=== PATIENT | female | born 1935 | race Caucasian/White ===

== ENCOUNTER 2017-03-08 23:09 | Emergency (ER) | payer OTHER, MEDICARE ==
[~2017-03-08] VITALS: Ht 170.2 cm; Wt 52.2 kg
[~2017-03-08 23:09] MED LIST: ADVAIR 100-501 EACH INH; ADVAIR 250-501 EACH INH; ADVAIR HFA 230M12 GM INH; ALDACTONE25 MG PO; ALPRAZOLAM 0.0.25 M1 PO; AMBEREN; CALCIUM 600 +1 EAC1 PO; CARAFATE 1 GM TA1 G1 PO; CARAFATE 11 GM/10 M1 PO; CLEOCIN HCL300 MG PO; CO Q-10150 MG PO; COUMADIN 5 MG TA5 M1 PO; D3 + K2 DOTS 11 EACH PO; DIGOXIN125 MCG PO; DUONEB 2.5-0.5 M3 ML INH; EPA-DHA 720 SO1 EACH; EPA-DHA 720 SO1 EACH PO; FISH OIL500 MG PO; FISHOIL; FLEXERIL PO; FOSAMAX 70 MG T70 M1 PO; FUROSEMIDE 40 M40 M1 PO; IRON325 PO; JANUVIA50 MG PO; KEFLEX500 MG PO; KLOR-CON M2020 MEQ PO; LANOXIN 0.250.25 M1 PO; LASIX 40 MG TAB40 M2 PO; LIPITOR20 MG PO; LISINOPRIL1 GM PO; LOPRESSOR25 PO; MAGNESIUM100 MG PO; METOPROLOL TART25 MG PO; MIDODRINE HCL 55 M1 PO; Magnesium PO; NEXIUM 40 MG CA40 M1 PO; NEXIUM40 MG PO; OMEPRAZOLE40 MG PO; PRESERVISION A1 EAC1 PO; PRESERVISION A1 EAC2 PO; PRESERVISION T1 EACH PO; PREVACID30 MG PO; PROAIR HFA8.5 GM INH; PROTEIN POWDER454 GM PO; REMERON15 MG PO; SELENIMIN50 MCG PO; SIMVASTATIN20 MG PO; SINGULAIR 10 MG10 M1 PO; SKELAXIN 800 M800 M1 PO; SYMBICORT160 MCG/4. INH; THIAMINE HCL100 MG PO; TOPROL XL50 MG PO; TRAMADOL 50 MG50 MG PO; TRIAMTERENE-HC1 EAC1 PO; VITAMIN B-1250 MC3 PO; VITAMIN B-625 MG PO; VITAMIN C 250250 MG PO; VITAMIN C500 M1 PO; VITAMIN D1000 UNI1 PO; VITAMIN D32000 UNI1 PO; VITAMIN E400 UNIT PO; ZANTAC 150MG T150 MG PO; ZESTRIL2.5 MG PO; ZINC CHELATE15 MG PO
[2017-03-09 00:58] LABS: ABSOLUTE NEUTROPHILS 3.8 thou/uL (1.4-8.2); BASOPHILS 0.9 % (0.0-2.0); EOSINOPHILS 1.9 % (0.0-3.0); HEMATOCRIT 33.2 % (37.0-47.0); HEMOGLOBIN 11.3 gm/dL (12.0-15.0); LYMPHOCYTES 31.3 % (24.0-44.0); MCH 33.2 pg (26.0-34.0); MCV 97.4 fL (80.0-100.0); MONOCYTES 11.6 % (1.0-8.0); PLATELET COUNT 186 thou/uL (150-400); POLYS 54.3 % (36.0-66.0); RBC 3.41 mil/uL (4.20-5.00); RDW 13.8 % (10.5-14.5); WBC 6.9 thou/uL (4.0-11.0)
[2017-03-09 01:00] LABS: MANUAL DIFF NO
[2017-03-09 01:20] LABS: INR 2.3; PROTIME 23.1 Seconds (9.3-11.4)
== END 2017-03-09 02:19 | disposition home or self-care (01) ==
LOC: ER 23:09
PROVIDERS: Emergency Medicine
DX: R04.0 Epistaxis (principal); J44.9 Chronic obstructive pulmonary disease, unspecified; I48.91 Unspecified atrial fibrillation; K21.9 Gastro-esophageal reflux disease without esophagitis; E11.9 Type 2 diabetes mellitus without complications; F41.9 Anxiety disorder, unspecified; F10.99 Alcohol use, unspecified with unspecified alcohol-induced disorder; I10 Essential (primary) hypertension; Z85.828 Personal history of other malignant neoplasm of skin; Z90.49 Acquired absence of other specified parts of digestive tract; Z96.641 Presence of right artificial hip joint; Z88.0 Allergy status to penicillin; Z88.2 Allergy status to sulfonamides

== ENCOUNTER 2017-12-14 20:03 | Inpatient (IN) | payer OTHER, MEDICARE ==
[~2017-12-14] VITALS: Ht 170.2 cm; Wt 50.3 kg
--- NOTE | ~2017-12-14 | H ---
[facility] [place] [address] HISTORY AND PHYSICAL Name: EARLENE GONZALEZ Room #: 464-P [facility] IN M.R.#: [id number] Admission: 12/14/17 Attend Phys: Cortes Paez MD Discharge: Date of : 36 Report #: [id number] THIS REPORT FOR: //name// CC: Cortes HAINES DATE OF SERVICE: 12/15/2017 REASON FOR CONSULTATION: Epistaxis. HISTORY OF PRESENT ILLNESS: The patient is an 82-year-old female, has had problems with epistaxis over the last several days. She was seen by my partner, Dr. Ortiz, on in the office and cauterized at that time. Throughout the next day, she started having bleeding again and was seen in the Emergency Room on Sunday, was admitted to the hospital on Sunday night after being cauterized again in the Emergency Room and continued to have problems with oozing from her left naris. She is on Coumadin. Her INR was 2.1 on admission. Her Coumadin is being held currently, but she is continued to ooze and received a routine consult this morning at 6:45 a.m. At that time, she was not actively bleeding. Nurse called me back at about 11:00 and she said that she started bleeding again. She was at that time treated with Afrin. She continued to ooze throughout the day and has been using tissue to catch the drops of blood that coming from the left naris. I have come to see her this evening with ongoing oozing despite cauterization x 2 as well as Afrin trial. PAST MEDICAL HISTORY: Significant at this point for atrial fibrillation for which she takes Coumadin and is anticoagulated. The rest of her medical history is well detailed in the history and physical, was available in the chart. MEDICATIONS: Her MAR for medications. ALLERGIES: SHE IS ALLERGIC TO PENICILLIN. REVIEW OF SYSTEMS: Currently is significant for epistaxis from the left side. PHYSICAL EXAMINATION: GENERAL: She is a well-developed female who is sitting up. She has eaten a portion of her dinner this evening. HEENT: She continues to hold a cotton to her left naris and continues to ooze very slowly, dripping from her left nose occasionally. Head normocephalic. Pupils are equal. Nasal: She has active bleeding from the left side of her nose, which is minimal. Oral cavity: No evidence of blood going down the posterior pharynx. NECK: No palpable adenopathy. IMPRESSION: Persistent epistaxis despite 2 attempts of cauterization and Afrin. [facility] [address] [place] [address] HISTORY AND PHYSICAL Name: EARLENE GONZALEZ Andrea Room #: 464-P [facility] IN M.R.#: [id number] Admission: 12/14/17 Attend Phys: Cortes Paez MD Discharge: Date of : 36 Report #: [id number] PLAN: Nasal packing is placed today with an 8 cm Merocel sponge placed in the left naris. We will see how she does overnight. She should stop bleeding. Once the bleeding has been adequately controlled for several hours, then she will be discharged and follow up with Dr. Ortiz in the office on Sunday. <ELECTRONICALLY SIGNED> By: Forest Rosales MD 12/16/1715 184 50 Forest Rosales MD /nt
[2017-12-14 20:16] VITALS: BP 120/49
[2017-12-14] MEDS ORDERED: CO Q-1010 MG PO (20:29)
[2017-12-14] MEDS ORDERED: FISH OIL 1,001000 M2 PO (20:31)
[2017-12-14] MEDS ORDERED: KLOR-CON 1010 MEQ PO (20:32)
[2017-12-14] MEDS ORDERED: MAGOX 400400 MG PO (20:33)
[2017-12-14] MEDS ORDERED: NEXIUM40 MG PO (20:34)
[2017-12-14] MEDS ORDERED: SELENIMIN50 MCG PO (20:35)
[2017-12-14] MEDS ORDERED: CARAFATE 1 GM TA1 G1 PO (20:44)
[2017-12-14] MEDS ORDERED: VITAMIN B 6 (20:45)
[2017-12-14] MEDS ORDERED: VITAMINC500 PO (20:45)
[2017-12-14 21:06] LABS: HEMOGLOBIN 9.2 gm/dL (12.0-15.0); MCH 32.2 pg (26.0-34.0); MCHC 33.9 g/dL (28.0-37.0); PLATELET COUNT 145 thou/uL (150-400); RBC 2.84 mil/uL (4.20-5.00); RDW 13.7 % (10.5-14.5); WBC 5.4 thou/uL (4.0-11.0)
[2017-12-14 21:22] LABS: INR 2.1; PROTIME 20.9 Seconds (9.3-11.4)
[2017-12-14 22:03] LABS: ABSOLUTE NEUTROPHILS 3.5 thou/uL (1.4-8.2)
[2017-12-14 22:57] LABS: CALCIUM 8.9 mg/dL (8.5-10.1); CREATININE 1.2 mg/dL (0.6-1.0); POTASSIUM 4.5 mmol/L (3.5-5.1)
[2017-12-14 23:22] VITALS: BP 120/49
[2017-12-14 23:48] VITALS: BP 122/64
[2017-12-15 00:05] VITALS: BP 126/61
[2017-12-15 03:15] VITALS: BP 115/46
[2017-12-15 05:31] LABS: HEMATOCRIT 26.7 % (37.0-47.0); HEMOGLOBIN 9.1 gm/dL (12.0-15.0)
[2017-12-15 05:42] LABS: CALCIUM 9.3 mg/dL (8.5-10.1); CREATININE 1.2 mg/dL (0.6-1.0); POTASSIUM 4.2 mmol/L (3.5-5.1)
[2017-12-15 05:54] LABS: INR 2.1; PROTIME 20.7 Seconds (9.3-11.4)
[2017-12-15 08:19] VITALS: BP 102/56
[2017-12-15 16:25] VITALS: BP 109/50
[2017-12-15 19:06] VITALS: BP 96/50
[2017-12-16 00:02] VITALS: BP 98/49
[2017-12-16 01:22] VITALS: BP 90/43
[2017-12-16 03:23] VITALS: BP 84/39
[2017-12-16] MEDS ORDERED: ASPIRIN EC325 MG PO (08:43)
[2017-12-16 10:37] VITALS: BP 113/28
[2017-12-16 10:52] VITALS: BP 113/28
== END 2017-12-16 14:34 | disposition home or self-care (01) | DRG 151 ==
LOC: ER 20:03 → EROBS 23:08 → 4W 23:49
PROVIDERS: Nurse Practitioner Acute Care; Nurse Practitioner Family
PROC: 2Y41X5Z Packing of Nasal Region using Packing Material (ICD-10-PCS; principal; 2017-12-14)
DX: R04.0 Epistaxis (principal); J96.10 Chronic respiratory failure, unspecified whether with hypoxia or hypercapnia; J43.9 Emphysema, unspecified; K21.9 Gastro-esophageal reflux disease without esophagitis; E11.9 Type 2 diabetes mellitus without complications; F41.9 Anxiety disorder, unspecified; I10 Essential (primary) hypertension; Z96.641 Presence of right artificial hip joint; I48.2 Chronic atrial fibrillation; D64.9 Anemia, unspecified; Z99.81 Dependence on supplemental oxygen; Z85.828 Personal history of other malignant neoplasm of skin; Z98.42 Cataract extraction status, left eye; Z98.41 Cataract extraction status, right eye; Z79.01 Long term (current) use of anticoagulants; Z90.49 Acquired absence of other specified parts of digestive tract; Z79.51 Long term (current) use of inhaled steroids; Z79.899 Other long term (current) drug therapy; Z88.0 Allergy status to penicillin; Z88.2 Allergy status to sulfonamides; Z82.49 Family history of ischemic heart disease and other diseases of the circulatory system; Z80.7 Family history of other malignant neoplasms of lymphoid, hematopoietic and related tissues
CPT/HCPCS: 10045

== ENCOUNTER 2017-12-21 10:41 | Emergency (ER) | payer OTHER, MEDICARE ==
[~2017-12-21] VITALS: Ht 170.2 cm; Wt 50.4 kg
[~2017-12-21 10:41] MED LIST changes: +ASPIRIN EC325 MG PO; +CO Q-1010 MG PO; +FISH OIL 1,001000 M2 PO; +KLOR-CON 1010 MEQ PO; +MAGOX 400400 MG PO; +VITAMIN B 6; +VITAMINC500 PO
[2017-12-21 11:58] LABS: HEMATOCRIT 27.1 % (37.0-47.0); HEMOGLOBIN 9.2 gm/dL (12.0-15.0); MCH 32.1 pg (26.0-34.0); MCHC 34.1 g/dL (28.0-37.0); MCV 94.3 fL (80.0-100.0); PLATELET COUNT 165 thou/uL (150-400); RBC 2.87 mil/uL (4.20-5.00); RDW 14.1 % (10.5-14.5); WBC 6.6 thou/uL (4.0-11.0)
[2017-12-21 12:10] LABS: INR 1.4; PROTIME 14.4 Seconds (9.3-11.4)
[2017-12-21] MEDS ORDERED: CIPRO250 M1 PO (12:43)
[2017-12-21 12:49] LABS: ABSOLUTE NEUTROPHILS 4.4 thou/uL (1.4-8.2)
== END 2017-12-21 14:25 | disposition home or self-care (01) ==
LOC: ER 10:41
PROVIDERS: Emergency Medicine
DX: R04.0 Epistaxis (principal); J44.9 Chronic obstructive pulmonary disease, unspecified; I48.91 Unspecified atrial fibrillation; G47.30 Sleep apnea, unspecified; K21.9 Gastro-esophageal reflux disease without esophagitis; M19.90 Unspecified osteoarthritis, unspecified site; E11.9 Type 2 diabetes mellitus without complications; F41.9 Anxiety disorder, unspecified; I45.6 Pre-excitation syndrome; I10 Essential (primary) hypertension; Z96.641 Presence of right artificial hip joint; Z85.828 Personal history of other malignant neoplasm of skin; Z90.49 Acquired absence of other specified parts of digestive tract; Z90.89 Acquired absence of other organs; Z88.0 Allergy status to penicillin; Z88.2 Allergy status to sulfonamides

== ENCOUNTER 2017-12-21 21:16 | Inpatient (IN) | payer OTHER, MEDICARE ==
[~2017-12-21] VITALS: Ht 172.7 cm; Wt 54.2 kg
--- NOTE | ~2017-12-21 | HC ---
[facility] [place] [address] [place] [address] CONSULTATION Name: EARLENE GONZALEZ Room #: 364-P [facility] IN ..#: [id number] Admission: 12/21/17 Attend Phys: Sunny Smith DO Discharge: Date of : 36 Report #: [id number] THIS REPORT FOR: //name// CC: Sunny HAINES DATE OF SERVICE: 12/22/2017 SURGEON: Kirk Ortiz MD. REASON FOR CONSULTATION: Persistent and recurrent epistaxis. HISTORY OF PRESENT ILLNESS: The patient is an 82-year-old female, well known to me from the office. She has had a problem for years with chronic epistaxis, over the course of the last month, this has been an increasing problem. The patient has chronic COPD and is on 24/7 oxygen dependency via nasal cannula. Often, she uses non-humidified oxygen through the nose and as a result of her underlying nasal septal deviation, the cannula impacts the nasal septum with the high flow oxygen that is dry. This has created a situation of chronic mucosal excoriation and crusting resulting in persistent bleeding. Complicating this, the patient has atrial fibrillation and is on chronic Coumadin therapy. Recently, she had come in with an elevated INR, in last week, her Coumadin was held for several days to get this back to normal. This did help with the bleeding after cauterization in the office. The patient was begun on Bactroban ointment, and a home health care was contacted, and an oxygen mask delivery system was arranged. We have tried this in the past, and she has been very resistant to do this secondary to claustrophobia. The patient had been doing better. She restarted her Coumadin 48 hours ago and yesterday had a recurrence of bleeding. She presented to the Emergency Department yesterday morning about 10:55. I have reviewed the notes as well as she had contacted my office and talked with my nurse. A Rapid Rhino epistaxis balloon was placed on her left side with control. She was discharged to home. She has been watching the [employer] game last night and sneezed. The balloon came out, and she began bleeding significantly. She re-presented to the Emergency Department last evening. Initially, a Rapid Rhino balloon was put on the opposite right side. This seemed to control initially, but that she began bleeding through the left. An attempt was made to pass another balloon on the left, leaving the balloon on the right inflated unsuccessfully. The Emergency Department physician called me. I reviewed how to do this. The balloon on the right was to be deflated and then both balloons advanced and then inflated at the same time. This controlled the bleeding completely. The patient's initial hemoglobin yesterday morning was 9.2, and a second hemoglobin was done yesterday evening with a hemoglobin of 9.4. The patient had a protime of 14.4, with an INR of 1.4. When she came back in through the [facility] [address] [place] [address] CONSULTATION Name: EARLENE GONZALEZ Room #: 364-P [facility] IN M.R.#: [id number] Admission: 12/21/17 Attend Phys: Sunny Smith DO Discharge: Date of : 36 Report #: [id number] Emergency Department yesterday evening, this was repeated showing a protime of 14.7 with an INR of 1.4 and a PTT of 34.6. Because of bilateral nasal packing, her advanced COPD and oxygen dependency, the patient is a high risk for apnea and was admitted for telemetry and oximetry continuous. The patient will require broad spectrum prophylactic antibiotics while the packing is in place as well. I have again reviewed with her that the nasal cannula oxygen delivery will need to be discontinued, and the patient will need to switch to humidified mask as this heals over the next several weeks. In addition, I have talked with her hospitalist concerning the anticoagulation. This has become a problem, and the Coumadin may be more risky for her at this point, we may need to switch to a different avenue of anticoagulation including aspirin only for her chronic atrial fibrillation. PAST MEDICAL HISTORY: Significant for atrial fibrillation. She is on chronic anticoagulation with Coumadin. She has a history of coronary artery disease and chronic COPD and is oxygen dependent 24 x 7 with nasal cannula delivery. She has had recurrent bouts of epistaxis through the last several years, although the last month has been particularly bad for her. She has a history of esophageal ulcer and gastroesophageal reflux disease. She has a nontraumatic compression fracture of the seventh thoracic vertebrae. 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 History of cholecystectomy, history of tonsillectomy, history of Ntahj-Rqjnzpwxi-Pyzfy syndrome, history of bilateral cataract surgery. MEDICATIONS: Contained in her MAR. ALLERGIES: PENICILLIN AND SULFA. SOCIAL HISTORY: She is a nonsmoker and a never smoker. She does not use alcohol. She does have a who is supportive. She does live independently. FAMILY HISTORY: Significant for mother with coronary artery disease and lymphoma in her mother. REVIEW OF SYSTEMS: The patient is complaining of congestion with the balloons in place. There is no active bleeding. She is having some mild discomfort on her palate and pharynx with dryness. Otherwise, a 12-point review of systems negative. PHYSICAL EXAMINATION: GENERAL: Shows a well-developed 82-year-old female, seen in her hospital room. She is awake, alert, conversant and oriented. VITAL SIGNS: Showed temperature of 97.9, with a blood pressure 127/64, respirations of 20, pulse of 90. She is at 94% on pulse oximetry, still with oxygen use, which she is using via nasal cannula in her oral cavity. [facility] [address] [place] [address] CONSULTATION Name: LISAEARLENE Room #: 364-P [facility] IN .R.#: [id number] Admission: 12/21/17 Attend Phys: Sunny Smith DO Discharge: Date of : 36 Report #: [id number] HEENT: Nasal exam shows bilateral Rapid Rhino balloons in place. There is no active bleeding. There is dried crusted blood, especially at the left naris. Oral cavity shows atraumatic mucosa. Normal tongue and floor of mouth. There is no active bleeding in the posterior pharynx, but some dried blood present. NECK: Without adenopathy or other masses. NEUROLOGIC: Cranial nerves 2-12 intact. Motor and sensory and cerebellar exams are otherwise grossly normal. ASSESSMENT: 1. Severe, recurrent and persistent epistaxis. This is complicated by chronic Coumadin anticoagulation recently with an elevated INR. Nasal septal deviation is an anatomic deformity and chronic O2 delivery via nasal cannula with high flow nonhumidified. This has resulted in excoriation of her nasal mucosa with chronic crusting. The patient has been treated in the office with cauterization with limited improvement and continued on topical Bactroban ointment b.i.d. She has been arranged for an oxygen mask as an alternative to the nasal cannula, but is resistant to use this secondary to per professed claustrophobia. I again reviewed with her that it is paramount that this nasal cannula oxygen delivery be discontinued as this is continuing to dry crack and make the mucosa bleed. 2. Chronic anticoagulation with Coumadin for chronic atrial fibrillation. Consideration may need to be given to discontinuation of this and change to another modality of anticoagulation including aspirin only and accepting increased risk with this as the Coumadin seems to be continually problematic for bleeding. 3. Chronic obstructive pulmonary disease, oxygen dependency. 4. Chronic coronary artery disease with atrial fibrillation. 5. History of Tlmay-Jnqanraiu-Vbwsf syndrome. 6. Hypertension. 7. Noninsulin dependent diabetes. 8. Obstructive apnea. PLAN: 1. Admission for observation, telemetry and oximetry. The patient is at a high risk for apnea with bilateral nasal packing and severe COPD. Keep head of bed elevated 30 degrees. 2. Continue Rapid Rhino balloons for a minimum of 72 hours to allow for a fibrin clot to form prior to removal. 3. Broad spectrum antibiotic prophylaxis while balloons are in place. 4. Pending discharge the patient will need to be arranged for oxygen delivery via mask and nonuse of her nasal cannula. 5. Post-removal of balloons would reinstitute Bactroban ointment b.i.d. in the nasal cavity bilateral. Plan to follow along with you and available for any [address] [address] CONSULTATION Name: EARLENE GONZALEZ Room #: 364-P [facility] IN M.R.#: [id number] Admission: 12/21/17 Attend Phys: Sunny Smith DO Discharge: Date of : 36 Report #: [id number] worsening of symptoms. The patient understands of this very difficult situation. The patient is not a surgical candidate. <ELECTRONICALLY SIGNED> By: Kirk Ortiz MD 12/23/17 1032 [id number] Kirk Ortiz MD /nt
--- NOTE | ~2017-12-21 | EKG ---
[address] [address] ELECTROCARDIOGRAM REPORT Name: EARLENE GONZALEZ Room #: 364-P [facility] IN M.R.#: [id number] Admission: 12/21/17 Attend Phys: Sunny Smith DO Discharge: Date of : 36 Report #: [id number] THIS REPORT FOR: //name// [facility] Test Date: 2017-12-23 Test Time: 12:49:14 Pat Name: EARLENE GONZALEZ Department: Room: 364 P Gender: F Crayon Sawyer: [place] : 1935 Requested By: Dustin Becerril Order Number: [id number] MD: Dustin Becerril Measurements Intervals Raccoon Rate: 110 P: [place]: QRS: 113 QRSD: 131 T: 225 QT: 397 QTc: 538 Interpretive Statements Atrial fibrillation IVCD, consider atypical RBBB Excess motion artifact precordial leads Compared to ECG 08/27/2016 21:37:48 Left posterior fascicular block no longer present Electronically Signed On 12-23-2017 20:00:14 CDT by Dustin Becerril [email or web address] <ELECTRONICALLY SIGNED> By: Dustin Becerril MD 12/23/171999 1249 1249 Dustin Becerril MD /EPI
[2017-12-21 00:11] VITALS: BP 114/52
[~2017-12-21 21:16] MED LIST changes: +CIPRO250 M1 PO
[2017-12-21 22:08] LABS: HEMATOCRIT 27.7 % (37.0-47.0); HEMOGLOBIN 9.4 gm/dL (12.0-15.0); MCH 32.6 pg (26.0-34.0); MCHC 34.1 g/dL (28.0-37.0); MCV 95.4 fL (80.0-100.0); RBC 2.9 mil/uL (4.20-5.00); RDW 14.5 % (10.5-14.5); WBC 7.2 thou/uL (4.0-11.0)
[2017-12-21 22:18] LABS: CALCIUM 8.9 mg/dL (8.5-10.1); CREATININE 1.3 mg/dL (0.6-1.0); POTASSIUM 4.1 mmol/L (3.5-5.1)
[2017-12-21 22:23] LABS: APTT 34.6 Seconds (24.5-32.8); INR 1.4; PROTIME 14.7 Seconds (9.3-11.4)
[2017-12-21 23:58] VITALS: BP 110/74
[2017-12-22 04:17] VITALS: BP 116/64
[2017-12-22 07:48] VITALS: BP 127/64
[2017-12-22 11:12] VITALS: BP 107/54
[2017-12-22 15:16] VITALS: BP 75/42
[2017-12-22 17:49] VITALS: BP 94/46
[2017-12-22 19:00] VITALS: BP 96/48
[2017-12-22 20:04] LABS: HEMATOCRIT 24.5 % (37.0-47.0); HEMOGLOBIN 8.4 gm/dL (12.0-15.0); MCH 32.9 pg (26.0-34.0); MCHC 34.3 g/dL (28.0-37.0); MCV 95.9 fL (80.0-100.0); PLATELET COUNT 142 thou/uL (150-400); RBC 2.55 mil/uL (4.20-5.00); RDW 14.7 % (10.5-14.5); WBC 5.8 thou/uL (4.0-11.0)
[2017-12-22 20:08] LABS: CALCIUM 8.2 mg/dL (8.5-10.1); CREATININE 1.4 mg/dL (0.6-1.0); POTASSIUM 3.8 mmol/L (3.5-5.1)
[2017-12-22 20:21] LABS: ABSOLUTE NEUTROPHILS 3.6 thou/uL (1.4-8.2)
[2017-12-23] VITALS (7 sets, daily range): BP systolic 92–132; BP diastolic 45–74
[2017-12-23 05:43] LABS: HEMATOCRIT 25.9 % (37.0-47.0); HEMOGLOBIN 8.7 gm/dL (12.0-15.0); MCH 32.1 pg (26.0-34.0); MCHC 33.6 g/dL (28.0-37.0); MCV 95.4 fL (80.0-100.0); RBC 2.71 mil/uL (4.20-5.00); RDW 14.3 % (10.5-14.5); WBC 6.4 thou/uL (4.0-11.0)
[2017-12-23 05:52] LABS: CALCIUM 8.3 mg/dL (8.5-10.1); CREATININE 1.2 mg/dL (0.6-1.0); POTASSIUM 4.3 mmol/L (3.5-5.1)
[2017-12-23 06:47] LABS: APTT 35.2 Seconds (24.5-32.8); INR 1.7; PROTIME 16.9 Seconds (9.3-11.4)
[2017-12-24] VITALS (8 sets, daily range): BP systolic 12–139; BP diastolic 38–94
[2017-12-24 06:01] LABS: INR 1.6; PROTIME 15.8 Seconds (9.3-11.4)
[2017-12-24 06:07] LABS: CALCIUM 8.9 mg/dL (8.5-10.1); CREATININE 1.2 mg/dL (0.6-1.0); POTASSIUM 4.2 mmol/L (3.5-5.1)
[2017-12-25 00:10] VITALS: BP 99/57
[2017-12-25 05:00] VITALS: BP 103/49
[2017-12-25 05:38] LABS: BASOPHILS 0.7 % (0.0-2.0); EOSINOPHILS 0.5 % (0.0-3.0); HEMATOCRIT 24.7 % (37.0-47.0); HEMOGLOBIN 8.3 gm/dL (12.0-15.0); MCH 32.3 pg (26.0-34.0); MCHC 33.8 g/dL (28.0-37.0); MCV 95.5 fL (80.0-100.0); MONOCYTES 7.1 % (1.0-8.0); PLATELET COUNT 156 thou/uL (150-400); POLYS 85.7 % (36.0-66.0); RBC 2.59 mil/uL (4.20-5.00); RDW 14.7 % (10.5-14.5)
[2017-12-25 05:45] LABS: CALCIUM 8.7 mg/dL (8.5-10.1); CREATININE 1.1 mg/dL (0.6-1.0); POTASSIUM 4.2 mmol/L (3.5-5.1)
[2017-12-25] MEDS ORDERED: LEVAQUIN 500 M500 M4 PO (08:07)
[2017-12-25 08:15] VITALS: BP 108/66
[2017-12-25 11:53] VITALS: BP 139/117
[2017-12-25 18:12] VITALS: BP 135/98
[2017-12-25 19:50] VITALS: BP 123/39
[2017-12-26 00:08] VITALS: BP 113/48
[2017-12-26 03:05] VITALS: BP 117/65
[2017-12-26 08:01] VITALS: BP 114/55
[2017-12-26] MEDS ORDERED: LASIX 20 MG TAB20 MG PO (08:18)
[2017-12-26 12:26] VITALS: BP 121/56
== END 2017-12-26 14:25 | DRG 150 ==
LOC: ER 21:16 → EROBS 22:40 → 3W 22:40
PROVIDERS: Emergency Medicine; Hospitalist; Nurse Practitioner Family
PROC: 2Y41X5Z Packing of Nasal Region using Packing Material (ICD-10-PCS; principal; 2017-12-21)
DX: R04.0 Epistaxis (principal); E43 Unspecified severe protein-calorie malnutrition; Z68.1 Body mass index [BMI] 19.9 or less, adult; D68.32 Hemorrhagic disorder due to extrinsic circulating anticoagulants; M19.90 Unspecified osteoarthritis, unspecified site; K21.9 Gastro-esophageal reflux disease without esophagitis; I25.10 Atherosclerotic heart disease of native coronary artery without angina pectoris; J44.9 Chronic obstructive pulmonary disease, unspecified; G47.33 Obstructive sleep apnea (adult) (pediatric); I10 Essential (primary) hypertension; D50.9 Iron deficiency anemia, unspecified; I48.2 Chronic atrial fibrillation; I95.9 Hypotension, unspecified; E11.9 Type 2 diabetes mellitus without complications; F41.9 Anxiety disorder, unspecified; Z96.641 Presence of right artificial hip joint; T45.515A Adverse effect of anticoagulants, initial encounter; Y92.89 Other specified places as the place of occurrence of the external cause; Z85.828 Personal history of other malignant neoplasm of skin; Z99.81 Dependence on supplemental oxygen; Z90.49 Acquired absence of other specified parts of digestive tract; Z98.42 Cataract extraction status, left eye; Z98.41 Cataract extraction status, right eye; Z87.81 Personal history of (healed) traumatic fracture; Z79.82 Long term (current) use of aspirin; Z79.899 Other long term (current) drug therapy; Z88.0 Allergy status to penicillin; Z88.2 Allergy status to sulfonamides; Z82.49 Family history of ischemic heart disease and other diseases of the circulatory system; Z80.7 Family history of other malignant neoplasms of lymphoid, hematopoietic and related tissues
CPT/HCPCS: 10879